=== PATIENT | female | born 1990 | race Caucasian/White ===

== ENCOUNTER 2023-10-20 04:58 | Emergency (ER) | payer OTHER ==
[2023-10-20] MEDS: Nitrofurantoin Monohydrate/Macrocrystalline 100 MG Cap PO ONE (05:19)
== END 2023-10-20 05:24 | disposition home or self-care (01) ==
LOC: VM.ED 04:58
DX: N39.0 Urinary tract infection, site not specified (principal); Z88.2 Allergy status to sulfonamides; Z88.8 Allergy status to other drugs, medicaments and biological substances
CPT/HCPCS: 99283; A9270-GY